=== PATIENT | male | born 1990 | race Caucasian/White ===

== ENCOUNTER 2016-09-11 19:54 | Emergency (ER) | payer OTHER | END 2016-09-11 22:11 | disposition home or self-care (01) | LOC: FER 19:54 | DX: J02.0 Streptococcal pharyngitis (principal); M06.9 Rheumatoid arthritis, unspecified | CPT/HCPCS: 87450; J0561; J1100 ==

== ENCOUNTER 2021-04-19 17:45 | Emergency (ER) | payer OTHER ==
[~2021-04-19 17:45] MED LIST: AMOXICILLIN500 MG PO; AUGMENTIN 875-1 EACH PO; CLARITHROMYCIN500 MG PO; MOTRIN600 MG PO; PRILOSEC20 MG PO; TAMIFLU75 MG PO
[2021-04-19 19:58] LABS: BASOPHIL 0.4 % (0-2); EOSINOPHIL 2.2 % (0-5); HCT 51.1 % (42.0-52.0); HGB 15.8 g/dl (13.2-18.0); LYMPHOCYTE 38.7 % (15-48); MCH 24.6 pg (25.0-31.0); MCHC 30.9 g/dL (32.0-36.0); MCV 79.7 fL (78.0-100.0); NEUTROPHIL 51.4 % (41-80); NRBC 0; PLT 288 K/uL (150-400); RBC 6.41 M/uL (4.70-6.00); RDW 14.2 % (11.5-14.0); WBC 11.8 K/uL (4.0-10.5)
[2021-04-19 20:14] LABS: ALBUMIN 3.8 g/dL (3.4-5.0); BILIRUBIN - TOTAL 0.3 mg/dL (0.2-1.0); BUN/CREAT RATIO (CALC) 7.8 RATIO; CREATININE 1.02 mg/dL (0.67-1.17); GLOBULIN (CALCULATION) 3.5 g/dL; POTASSIUM 4.6 mmol/L (3.5-5.1); TOTAL PROTEIN 7.3 g/dL (6.4-8.2)
[2021-04-19 21:08] LABS: BILIRUBIN NEGATIVE (NEGATIVE); BLOOD NEGATIVE Ery/uL (NEGATIVE); CLARITY CLEAR (CLEAR); COLOR YELLOW (YELLOW); GLUCOSE (U) NORMAL (NORMAL); LEUKOCYTES NEGATIVE Leu/uL (NEGATIVE); NITRITE NEGATIVE (NEGATIVE); PROTEIN NEGATIVE (NEGATIVE); SPECIFIC GRAVITY >=1.030 (1.001-1.030); UROBILINOGEN 0.2 mg/dL (0.2-1.0)
[2021-04-19] MEDS ORDERED: NORCO 5-325 TA1 EACH PO (22:36)
[2021-04-19] MEDS ORDERED: MEDROL 4MG DOSEP4 MG PO (22:36)
[2021-04-19] MEDS ORDERED: FLEXERIL5 MG PO (22:36)
== END 2021-04-19 23:12 | disposition home or self-care (01) ==
LOC: FER 17:45
PROVIDERS: Emergency Medicine; Nurse Practitioner Family
DX: N20.0 Calculus of kidney (principal); M54.15 Radiculopathy, thoracolumbar region
CPT/HCPCS: 36415; 80053; 81003; 83690; 84145; 85025; J1170; J1885; J2405